=== PATIENT | male | born 1985 | race Caucasian/White ===

== ENCOUNTER 2023-08-08 16:30 | Outpatient (REF) | payer MEDICAID, SELFPAY ==
[2023-08-08 16:18] LABS: Abs Immature Grans 0.01 10^3/uL (0.0-0.06); Absolute Basophil Count 0.04 10^3/uL (0.0-0.2); Absolute Eosinophil Count 0.04 10^3/uL (0.0-0.7); Absolute Lymphocyte Count 1.65 10^3/uL (1.2-3.4); Absolute Monocyte Count 0.52 10^3/uL (0.1-0.8); Absolute Neutrophil Count 4.66 10^3/uL (1.2-6.7); Basophils % 0.6; Eosinophils % 0.6; HCT 47.2 % (40.0-50.0); Immature Grans % 0.1; Lymphocytes % 23.8; MCH 32.6 pg (27.0-33.0); MCV 90 fL (80-95); Monocytes % 7.5; Neutrophils % 67.4; Platelet Count 265 10^3/uL (130-400); RBC 5.22 10^6/uL (4.36-5.78); RDW 11.7 % (11.8-14.1); RDW-SD 38.6 fL; WBC 6.92 10^3/uL (4.4-10.8)
[2023-08-08 17:32] LABS: ALT 64 U/L (16-63); AST 34 U/L (15-37); Alkaline Phosphatase 115 U/L (46-116); Anion Gap 9.5 mmol/L (3-11); BUN 14 mg/dL (7-18); Bilirubin, Total 0.9 mg/dL (0.2-1.0); CO2 26.5 mmol/L (21.0-32.0); Calcium 9.8 mg/dL (8.5-10.1); Calculated LDL 173 mg/dL (<100); Chloride 102 mmol/L (98-107); Cholesterol 263 mg/dL (<200); Estimated GFR 100.03 (mL/min/1.73m2); Glucose 108 mg/dL (74-106); HDL Cholesterol 77 mg/dL (40-60); Potassium 4.1 mmol/L (3.5-5.1); Sodium 138 mmol/L (136-145); Triglyceride 69 mg/dL (<150)
== END 2023-08-08 16:31 | disposition home or self-care (01) ==
LOC: NCHCN 16:30
PROVIDERS: Visit Provider Nurse Practitioner Family
DX: R10.9 Unspecified abdominal pain (principal)
CPT/HCPCS: 80053; 80061; 85025

== ENCOUNTER 2024-11-10 17:57 | Outpatient (REF) | payer MEDICAID, SELFPAY ==
[2024-11-10 16:14] LABS: Abs Immature Grans 0.11 10^3/uL (0.0-0.06); Absolute Monocyte Count 1.04 10^3/uL (0.1-0.8); Absolute Neutrophil Count 12.23 10^3/uL (1.2-6.7); Basophils % 0.5 %; Eosinophils % 0.3 %; HCT 38.4 % (40.0-50.0); HGB 13.4 g/dL (13.5-17.5); Immature Grans % 0.7 %; Lymphocytes % 11.5 %; MCH 32.4 pg (27.0-33.0); MCHC 34.9 % (32.0-36.0); MCV 93 fL (80-95); MPV 11.2 fL (8.0-11.0); Monocytes % 6.8 %; Neutrophils % 80.2 %; Platelet Count 497 10^3/uL (130-400); RBC 4.14 10^6/uL (4.36-5.78); RDW-SD 41.1 fL; WBC 15.25 10^3/uL (4.4-10.8)
[2024-11-10 16:16] LABS: Absolute Basophil Count 0.08 10^3/uL (0.0-0.2); Absolute Eosinophil Count 0.05 10^3/uL (0.0-0.7); Absolute Lymphocyte Count 1.75 10^3/uL (1.2-3.4)
[2024-11-10 16:33] LABS: Anion Gap 9.4 mmol/L (3-11); BUN 16 mg/dL (7-18); CO2 29.6 mmol/L (21.0-32.0); CREATININE 0.8 mg/dL (0.70-1.30); Calcium 8.5 mg/dL (8.5-10.1); Chloride 100 mmol/L (98-107); Glucose 91 mg/dL (74-106); Sodium 139 mmol/L (136-145)
[2024-11-11 10:53] LABS: Lyme Ab w Rflx to Lyme Confirm Negative (Negative)
== END 2024-11-10 17:58 | disposition home or self-care (01) ==
LOC: NCHCN 17:57
PROVIDERS: Visit Provider Family Medicine
DX: R53.83 Other fatigue (principal); W57.XXXA Bitten or stung by nonvenomous insect and other nonvenomous arthropods, initial encounter
CPT/HCPCS: 80048; 86753; 85025; 86618